=== PATIENT | male | born 1985 | race Two or more races ===

== ENCOUNTER 2017-08-19 23:28 | Emergency (ER) | payer OTHER ==
[~2017-08-19] VITALS: Ht 193 cm; Wt 135.2 kg
[2017-08-20 00:09] VITALS: BP 151/80
[2017-08-20] MEDS ORDERED: KETOROLAC TROMETH 30 MG/ML 1ML VIAL IV ONE (00:45)
[2017-08-20] MEDS ORDERED: HYDROcodone-ACET 10/325MG TAB PO ONE (00:45)
[2017-08-20] MEDS ORDERED: TETANUS IMMUNE GLOBULIN 250 UNIT/ML SYRG IM ONE (02:00)
== END 2017-08-20 02:04 | disposition home or self-care (01) ==
LOC: EDBD 23:28 → ER 23:36
DX: S01.81XA Laceration without foreign body of other part of head, initial encounter (principal); S13.9XXA Sprain of joints and ligaments of unspecified parts of neck, initial encounter; S80.212A Abrasion, left knee, initial encounter; S80.211A Abrasion, right knee, initial encounter; R55 Syncope and collapse; V43.52XA Car driver injured in collision with other type car in traffic accident, initial encounter; Y93.89 Activity, other specified; Y92.89 Other specified places as the place of occurrence of the external cause; Y99.8 Other external cause status
CPT/HCPCS: 12011; 12051; 70450; 72125

== ENCOUNTER 2020-02-03 03:08 | Emergency (ER) | payer SELFPAY ==
[~2020-02-03] VITALS: Ht 193 cm; Wt 138.3 kg
[2020-02-03] MEDS ORDERED: LORazepam 0.5 MG TAB PO ONE (05:00)
[2020-02-03] MEDS ORDERED: ALBUTEROL SULF HFA 90MCG INH 200DOSE IN SCH (06:00)
[2020-02-03 09:18] LABS: Basophils # (auto) 0 10 ^3/uL (0-0.2); Basophils % (auto) 0.2 % (0.0-2.0); Eosinophils # (auto) 0 10 ^3/uL (0-0.8); Eosinophils % (auto) 0.1 % (0.0-7.0); Hematocrit 47.9 % (41.0-53.0); Hemoglobin 16.8 g/dL (13.5-17.5); Lymphocytes # (auto) 1.2 10 ^3/uL (0.4-5.4); Lymphocytes % (auto) 33.8 % (10.0-50.0); Mean Corpuscular Hemoglobin 31.9 pg (28.0-32.0); Mean Corpuscular Volume 91.2 fL (80.0-100.0); Monocytes # (auto) 0.3 10 ^3/uL (0-1.3); Neutrophils # (auto) 2.1 10 ^3/uL (1.6-8.6); Neutrophils % (auto) 57.9 % (37.0-80.0); Platelet Count (auto) 213 10^3/uL (140-450); Red Blood Cells 5.25 10^6/uL (4.5-5.90); Red Cell Distribution Width 13.4 % (11.8-14.3); White Blood Cell 3.7 10^3/uL (4.4-10.8)
[2020-02-03 09:32] LABS: Albumin 4.2 g/dL (3.4-5.0); Anion Gap 6 (5-15); Blood Urea Nitrogen 7 mg/dL (7-18); Calcium 8.6 mg/dL (8.5-10.1); Carbon Dioxide 25 mmol/L (21-32); Chloride 106 mmol/L (98-107); Glucose 100 mg/dL (74-106); Magnesium 2.4 mg/dL (1.6-2.6); Potassium 4.2 mmol/L (3.5-5.1); Sodium 137 mmol/L (136-145)
[2020-02-03 09:38] LABS: Alanine Aminotransferase 71 U/L (16-61); Alkaline Phosphatase 82 U/L (45-117); Aspartate Aminotransferase 39 U/L (15-37); BUN/Creatinine Ratio 6.8; Bilirubin, Total 0.7 mg/dL (0.2-1.0); GFR African American 108 mL/min; GFR Non-African American 89 mL/min; Lactate Dehydrogenase 228 U/L (87-241); Total Protein 8.1 g/dL (6.4-8.2)
[2020-02-03 11:56] VITALS: BP 126/80
== END 2020-02-03 12:23 | disposition home or self-care (01) ==
LOC: ER 03:19
DX: U07.1 COVID-19 (principal)
CPT/HCPCS: 36415; 36600; 71045; 80053; 82728; 82805; 83615; 83735; 83880; 84484; 85025; 85379; 86141; 87040; 87426; 93005